=== PATIENT | male | born 1975 | race Caucasian/White ===

== ENCOUNTER 2024-08-29 23:22 | Emergency (ER) | payer OTHER, SELFPAY ==
--- NOTE | ~2024-08-29 | XR_ITS ---
EXAMINATION: XR hand RT min 3V DATE: 08/29/2024 23:58 INDICATION: Right hand fourth digit injury. TECHNIQUE: 3 views of right hand were obtained. COMPARISON: None. FINDINGS: Alignment is normal. No fracture. 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 There is a laceration of the tip of the fourth digit. IMPRESSION: 1. No fracture or radiopaque foreign body. Reviewed, dictated and finalized at location A. [facility]
[2024-08-29 23:22] VITALS: BP 178/103; PULSE 113; RESP 15; TEMP 36.1; O2SAT 99
--- NOTE | 2024-08-30 01:25 | ED.GENADULT ---
HPI - General Adult General Chief complaint: Wound/Laceration Stated complaint: lawnmower landed on finger Time Seen by Provider: 08/30/24 01:11 History of Present Illness HPI narrative: Patient is a 49-year-old male who presents to the emergency department this evening status post a skin avulsion to the right ring finger. Patient states that a blower blast furnace fell into his hand and he swiftly pulled his hand but it still caught the tip of his ring finger patient did sustain a small 5 mm round skin avulsion to the tip of his right ring finger. Patient states that his tetanus is up-to-date. Denies any additional symptoms or concerns. Related Data Allergies Allergy/AdvReac Type Severity Reaction Status Date / Time No Known Allergies Allergy Unverified 06/04/17 13:02 Review of Systems Review of Systems: All systems are reviewed and are negative unless stated otherwise in the HPI. Exam Narrative: General: Alert, awake, afebrile, in no acute distress. HEENT: PERRL, no rhinorrhea, no post nasal drip, oropharynx clear. Cardiovascular: Regular rate and rhythm, no murmurs, rubs or gallops, no peripheral edema. Respiratory: Clear to auscultation bilaterally, no tachypnea, no wheezing, no rhonchi, no rubs, no respiratory distress. Abdomen: Soft, nontender, nondistended, no rebound, no guarding, no peritoneal signs. Musculoskeletal: No joint swelling or deformity, normal muscle tone. Skin: Small round 5 mm skin avulsion to the tip of the right ring finger, no active bleeding. Neurological: Alert and oriented to person, place, and time. Follows all commands. No focal deficits, speech is clear and fluent. Course Vital Signs Vital signs: Vital Signs Temperature 97 F L 08/29/24 23:22 Pulse Rate 113 H 08/29/24 23:22 Respiratory Rate 15 08/29/24 23:22 Blood Pressure 178/103 H 08/29/24 23:22 Pulse Oximetry 99 08/29/24 23:22 Oxygen Delivery Room Air 08/29/24 23:22 Temperature 97 F L 08/29/24 23:22 Pulse Rate 113 H 08/29/24 23:22 Respiratory Rate 15 08/29/24 23:22 Blood Pressure 178/103 H 08/29/24 23:22 Pulse Oximetry 99 08/29/24 23:22 Oxygen Delivery Room Air 08/29/24 23:22 Medical Decision Making MDM Narrative Medical decision making narrative: The patient was evaluated by myself in the emergency department. History is obtained from patient who is an independent historian and physical exam was performed. External medical records were reviewed at this time. Wound was properly irrigated using sterile saline. Patient was administered an oral Antelope 5-325 mg. Imaging studies obtained included a right hand x-ray which was independently interpreted by me revealing no fractures or dislocations, which is pending final radiology interpretation. Differential diagnosis considerations include fractures, disc his, abrasions, lacerations. Comorbidities impacting this visit include none. I have evaluated and discussed social determinants of health with the patient that could potentially impact subsequent diagnosis and treatment plans. On repeat assessment of the patient, reevaluation revealed that the patient is doing well and is in no acute distress. Patient symptoms have improved since he arrived to our emergency department. Repeat vital signs were all reviewed and noted to be stable. Differential diagnosis and treatment plan were discussed with the patient at bedside. Patient agrees with discussion and after shared medical decision making agrees with discharge. All questions were answered to the patient's satisfaction. Patient will follow up with his PCP in 3-5 days. Patient was informed that he will be placed on an oral antibiotic to take for the next week for for lactic lead to prevent infection given the dirty nature of the wound. Patient was provided with strict return precautions and instructed to return to the emergency department if any new or worsening symptoms develop. The patient was discharged in stable condition. Vital Signs Vital Signs: Vital Signs Temperature 97 F L 08/29/24 23:22 Pulse Rate 113 H 08/29/24 23:22 Respiratory Rate 15 08/29/24 23:22 Blood Pressure 178/103 H 08/29/24 23:22 Pulse Oximetry 99 08/29/24 23:22 Oxygen Delivery Room Air 08/29/24 23:22 Temperature 97 F L 08/29/24 23:22 Pulse Rate 113 H 08/29/24 23:22 Respiratory Rate 15 08/29/24 23:22 Blood Pressure 178/103 H 08/29/24 23:22 Pulse Oximetry 99 08/29/24 23:22 Oxygen Delivery Room Air 08/29/24 23:22 Discharge Plan Discharge Clinical Impression: Avulsion of skin Patient Disposition: Home, Self-Care Condition: Improved Instructions: Antibiotic Form, Skin Avulsion (ED) Additional Instructions: Please follow-up with your family doctor within the next 3 to 5 days. Return to the emergency department if any new or worsening symptoms develop. Take the prescribed antibiotic as instructed. Prescriptions: New cephalexin 500 mg capsule 500 mg PO Q12H 7 Days Qty: 14 0RF Follow-up/Referrals: Maury Gaines MD [Physician] - 3 Days PHYSICIAN,BOX ORDER PERSON [Primary Care Provider] - Time of Disposition: 01:27
[2024-08-30] MEDS: HYDROcodone/acetaminophen (*CRX) 5-325 MG TABLET 1 TAB PO (01:32)
== END 2024-08-30 01:37 | disposition home or self-care (01) ==
LOC: ANHED 08-30 01:32
PROVIDERS: Emergency Provider Emergency Medicine
DX: S61.214A Laceration without foreign body of right ring finger without damage to nail, initial encounter (principal); W26.8XXA Contact with other sharp object(s), not elsewhere classified, initial encounter
CPT/HCPCS: 73130; 99283; A9270